=== PATIENT | female | born 1970 | race African-American/Black ===

== ENCOUNTER 2019-07-26 09:50 | Emergency (ER) | payer MEDICAID ==
[~2019-07-26] VITALS: Ht 154.9 cm; Wt 82.0 kg
[2019-07-26 10:55] LABS: CLARITY URINE CLEAR (CLEAR); COLOR URINE YELLOW (YELLOW); KETONES URINE NEGATIVE (NEGATIVE); LEUKOCYTE ESTERASE URINE NEGATIVE (NEGATIVE); NITRITE URINE NEGATIVE (NEGATIVE); OCCULT BLOOD URINE NEGATIVE (NEGATIVE); PH URINE 6.5 (4.5-8.0); PROTEIN URINE NEGATIVE (NEGATIVE); SPECIFIC GRAVITY URINE 1.003 (1.005-1.030); UROBILINOGEN URINE 0.2 E.U./dL (0.2-1.0)
[2019-07-26 15:00] VITALS: BP 110/64
== END 2019-07-26 15:32 | disposition home or self-care (01) ==
LOC: ER 09:50
DX: R10.9 Unspecified abdominal pain (principal); E11.9 Type 2 diabetes mellitus without complications; I10 Essential (primary) hypertension; Z90.710 Acquired absence of both cervix and uterus
CPT/HCPCS: 81003; 87210; 99283